=== PATIENT | female | born 1955 | race Caucasian/White ===

== ENCOUNTER 2019-03-25 18:32 | Emergency (ER) | payer OTHER ==
[~2019-03-25] VITALS: Ht 167.6 cm; Wt 114.8 kg
[2019-03-25] MEDS ORDERED: NEURONTIN300 MG PO (19:19)
[2019-03-25] MEDS ORDERED: FUROSEMIDE 20 M20 MG PO (19:19)
[2019-03-25] MEDS ORDERED: COZAAR 25 MG TA25 M1 PO (19:20)
[2019-03-25] MEDS ORDERED: KLOR-CON M2020 MEQ PO (19:20)
[2019-03-25] MEDS ORDERED: ZANAFLEX4 MG PO (19:51)
[2019-03-25] MEDS ORDERED: FLEXERIL PO (19:52)
[2019-03-25] MEDS ORDERED: NORCO 5-325 TA1 EAC1 PO (21:34)
[2019-03-25 22:24] VITALS: BP 149/96
== END 2019-03-25 21:50 | disposition home or self-care (01) ==
LOC: M.ERS 18:32
DX: S16.1XXA Strain of muscle, fascia and tendon at neck level, initial encounter (principal); S39.012A Strain of muscle, fascia and tendon of lower back, initial encounter; S29.012A Strain of muscle and tendon of back wall of thorax, initial encounter; S09.8XXA Other specified injuries of head, initial encounter; I10 Essential (primary) hypertension; Z90.49 Acquired absence of other specified parts of digestive tract; Z90.89 Acquired absence of other organs; Z98.890 Other specified postprocedural states; Z88.6 Allergy status to analgesic agent; Z91.012 Allergy to eggs; Z91.018 Allergy to other foods; V89.2XXA Person injured in unspecified motor-vehicle accident, traffic, initial encounter; Y92.89 Other specified places as the place of occurrence of the external cause; Y93.89 Activity, other specified; Y99.8 Other external cause status

== ENCOUNTER → 2019-06-26 | Outpatient (CLI) | payer MEDICARE ==
[~2019-06-26] MED LIST: B COMPLEX1 EACH PO; COZAAR 25 MG TA25 M1 PO; D3 PO; FLEXERIL PO; FUROSEMIDE 20 M20 MG PO; KLOR-CON M2020 MEQ PO; MELOXICAM15 MG PO; NEURONTIN300 MG PO; NORCO 5-325 TA1 EAC1 PO; RIZATRIPTAN5 MG PO; ZANAFLEX4 MG PO
== END ==
LOC: M.PC 08:30
DX: M25.78 Osteophyte, vertebrae (principal); M47.22 Other spondylosis with radiculopathy, cervical region; M50.10 Cervical disc disorder with radiculopathy, unspecified cervical region; M54.81 Occipital neuralgia; Z79.891 Long term (current) use of opiate analgesic